=== PATIENT | female | born 1950 | race Caucasian/White ===

== ENCOUNTER → 2021-04-21 13:03 | Outpatient (CLI) | payer MEDICARE, SELFPAY ==
--- NOTE | 2021-04-21 13:11 | CT_ITS ---
STUDY: CT CHEST WITH CONTRAST REASON FOR EXAM: Female, 70 years old. NODULE OF LOWER LOBE RT LUNG RADIATION DOSAGE (If Supplied By Facility): CTDIvol = ( 7.84 ) mGy, DLP = ( 185.14 ) mGycm TECHNIQUE: Transaxial imaging was performed following intravenous administration of IV 100mL Isovue-370. Multiplanar coronal and sagittal images were reformatted. Individualized dose optimization techniques were used for this CT. COMPARISON: None. FINDINGS: There is evidence of a scarring at the lung apices likely more prominent on the left side. Impression calcified nodule in the right lower lobe suggestive of calcified granuloma. There is no demonstrated pleural abnormality. Normal heart and pericardium. Normal mediastinum. Normal hilar regions. Normal enhanced pulmonary arteries. Normal aorta arch and descending thoracic aorta. There are mild degenerative changes of the thoracic spine. There is no demonstrated abnormality of the visualized upper abdomen. CT/Chest WITH Contrast IMPRESSION: Calcified granuloma in the right lower lobe. Electronically Signed: Chente Madrigal MD at 13:50 EST , Service support ,
[2021-04-21 13:26] LABS: CREATININE FINGERSTICK 0.7 mg/dL (0.55-1.02); EGFR FINGERSTICK > 60.0000 mL/min (>60)
== END ==
PROVIDERS: PCP Family Medicine; Referring Provider Family Medicine; Visit Provider Family Medicine
DX: R91.1 Solitary pulmonary nodule (principal)
CPT/HCPCS: 71260; Q9967